=== PATIENT | female | born 1935 | race Caucasian/White ===

== ENCOUNTER 2016-12-12 08:47 | Emergency (ER) | payer OTHER, MEDICARE ==
[~2016-12-12] VITALS: Ht 162.6 cm; Wt 59.0 kg
[2016-12-12 08:54] VITALS: BP 114/72
[2016-12-12] MEDS ORDERED: ZITHROMAX250 M2 PO (09:13)
[2016-12-12] MEDS ORDERED: NASONEX17 GM NASB (09:13)
--- NOTE | 2016-12-12 09:13 | ED INFLUENZA/URI COMPLAINT ---
History of Present Illness General Chief Complaint: Upper Respiratory Sx/Fever Stated Complaint: SINUS INFECTION Source: patient, family, old records Exam Limitations: no limitations Vital Signs & Intake/Output Vital Signs & Intake/Output Vital Signs Date Time Temp Pulse Resp B/P B/P Pulse O2 O2 Flow FiO2 Mean Ox Delivery Rate 12/12 0854 97.2 89 16 114/72 93 Room Air Allergies Coded Allergies: Penicillins (UNKNOWN 12/12/16) atorvastatin (UNKNOWN 12/12/16) Reconcile Medications Azithromycin (Zithromax) 250 MG TABLET 1 DP PO AD SINUSITIS 2 the first day followed by 1 for days 2-5 Mometasone Furoate (Nasonex) 50 MCG SPRAY.PUMP 2 SPRAY NASB DAILY SINUSITIS Triage Note: PT STATES SHE HAS A SINUS INFECTION AND WENT TO WALK IN AND WAS GIVEN BENZONATATE AND QUINN BUT NOT FEELING BETTER. Triage Nurses Notes Reviewed? yes HPI: Patient states that she has had sinus congestion, sinus pressure and purulent nasal discharge since Friday. Patient [facility] Friday and was put on guaifenesin. Patient states that her symptoms have been worsening. Patient denies any fevers or chills. There is no blurry vision. There is no nausea or vomiting. The sinus pressure is constant and worsens when she leans forward. At its worst the pressure is 7 out of 10. There is no radiation. Past History Travel History Traveled to [place] past 21 day No Medical History Any Pertinent Medical History? 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 No Review of Systems Review of Systems Constitutional: Reports: no symptoms. EENTM: Reports: see HPI, nasal congestion. Respiratory: Reports: no symptoms. Cardiovascular: Reports: no symptoms. GI: Reports: no symptoms. Musculoskeletal: Reports: no symptoms. Neurological/Psychological: Reports: no symptoms. Immunologic/Allergic: Reports: no symptoms. Physical Exam Physical Exam General Appearance: well developed/nourished, alert, awake, anxious, mild distress Eyes: Bilateral: PERRL, EOMI. Ears, Nose, Throat: moist mucous membrane, nasal congestion, SINUS TENDERNESS Neck: normal inspection, supple, full range of motion, NO LAD Respiratory: normal breath sounds, chest non-tender, no respiratory distress, lungs clear Cardiovascular: regular rate/rhythm, normal peripheral pulses Extremities: normal inspection, normal capillary refill, normal range of motion, no edema Neurologic/Psych: no motor/sensory deficits, awake, alert, oriented x 3, normal gait, normal mood/affect Core Measures Severe Sepsis Present: No Septic Shock Present: No Progress Differential Diagnosis: sinusitis Plan of Care: ABX Initial ED EKG: none Departure Departure Disposition: HOME OR SELF CARE Condition: Stable Clinical Impression Primary Impression: Sinusitis Qualifiers: Sinusitis location: maxillary Chronicity: acute Recurrence: non- recurrent Qualified Code: J01.00 - Acute maxillary sinusitis, unspecified Referrals: ADRIÁN THOMPSON MD (PCP/Family) Additional Instructions: FOLLOW UP WITH DR. THOMPSON RETURN FOR ANY CONCERNS Departure Forms: Customer Survey General Discharge Information Prescriptions: Current Visit Scripts Azithromycin (Zithromax) 1 DP PO AD #6 TAB 2 the first day followed by 1 for days 2-5 Mometasone Furoate (Nasonex) 2 SPRAY NASB DAILY #1 INHAL
== END 2016-12-12 09:18 ==
LOC: ERH 08:47
DX: J32.9 Chronic sinusitis, unspecified (principal)